=== PATIENT | female | born 1955 | race Caucasian/White ===

== ENCOUNTER 2016-10-30 03:47 | Inpatient (IN) | payer OTHER ==
[2016-10-30] VITALS (8 sets, daily range): BP systolic 109–156; BP diastolic 63–103; PULSE 70–91; RESP 12–18; O2SAT 94–99
[~2016-10-30] VITALS: Ht 160 cm; Wt 93.2 kg
--- NOTE | 2016-10-30 04:01 | ED.REPORT ---
HPI-Abd Pain F 40 and Over Date of Service Oct 30, 2016 ED Provider: Kali Harris MD A 61 year old female with a family history of gallstones presents to the ED complaining of RUQ abdominal pain. The pain is described as "sharp" pain that radiates into her back and occasionally shoots into her chest. The pt ate a dinner of fish at 17:00 that contained a high oil content, and the pain began after this. The pain has not improved since and the pt has been unable to sleep. Nursing Notes Stated Complaint: RUQ PAIN Chief Complaint: Female Abdominal Pain Nursing Notes Reviewed: Yes Allergies: Coded Allergies: Penicillins (Verified Allergy, Intermediate, rash, 10/30/16) Sulfa (Sulfonamide Antibiotics) (Verified Allergy, Intermediate, hives, ) General Time Seen by MD: 04:00 Chief Complaint Abdominal pain Hx Obtained From: Patient Arrived By: Walk-in Sudden in Onset?: No Onset Occurred: 9 - 12 hours ago Symptom Duration: Since onset Recent Healthcare: No recent hospitalization, Recent doctor visit Similar Sx Previous: No Past Medical History Past Medical History none reported Past Surgical History none reported Family History gallstones Smoking History Unknown if Ever Smoker Ambulatory Status Independent Review of Systems Respiratory: Denies: Non-productive cough, Shortness of breath GI: Reports: Abdominal pain Musculoskeletal: Reports: Back pain, Denies: Neck pain Complete sys rev & neg: except as marked. Physical Exam Vital Signs Vital Signs (First) Date Time Temp Pulse Resp B/P Pulse Ox O2 Delivery O2 Flow Rate FiO2 10/30/16 03:49 37.2 74 18 156/103 98 Room Air Initial VS: Reviewed, Vital signs abnormal General/Constitutional: Awake, Alert Respiratory / Chest: Atraumatic, Breath sounds NL, Breath sounds = bilat, No respiratory distress Cardiovascular: Heart rate NL, Regular rhythm, Heart sounds NL Abdomen: Atraumatic, Soft RUQ tenderness Back: Atraumatic, Full range of motion right CVAT Head / Eyes: Atraumatic, Normocephalic, PERRL, EOMI ENT: Atraumatic, Airway patent, Mucous membranes moist Skin: Atraumatic, Color NL, No rash, Warm, Dry Neurologic: Oriented X3, Speech NL, No motor deficits, No sensory deficits Neck: Atraumatic, Supple, Full range of motion Upper Extremity / MS: Atraumatic, Full range of motion Lower Extremity / Pelvis / MS: Atraumatic, Full range of motion Psychiatric: Affect NL, Mood NL Interpretation & Diagnostics Lab Results Interpretation Result Diagram: 10/30/16 0505 Test 10/30/16 04:20 10/30/16 05:05 Urine Color Yellow (YELLOW) Urine Appearance Clear (CLEAR,HAZY) Urine pH 7.5 (5.0-8.0) Urine Specific [place] 1.020 (1.003-1.035) Urine Protein Tracemg/dL (NEG,TRACE) Urine Glucose (UA) Negativemg/dL (NEGATIVE) Urine Ketones Negativemg/dL (NEGATIVE) Urine Occult Blood Trace (NEGATIVE) Urine Nitrite Negative (NEGATIVE) Urine Bilirubin Negative (NEGATIVE) Urine Urobilinogen Normalmg/dL (NORMAL) Urine Leukocyte Esterase Negative (NEGATIVE) Urine RBC 0-2/hpf (0-2) Urine WBC 0-5/hpf (0-5) Urine Epithelial Cells Occasional/hpf (NONE-MOD) Urine Crystals None seen (NONE SEEN) Urine Bacteria Few/hpf (NONE-FEW) Urine Hyaline Casts None/lpf (NONE) Urine Granular Casts None seen (NONE SEEN) Urine Waxy Casts None seen (NONE SEEN) Urine Red Blood Cell Casts None seen (NONE SEEN) Urine White Blood Cell Casts None seen (NONE SEEN) Urine Mucus None seen (None Seen) Urine Trichomonas None seen (NONE SEEN) Urine Yeast None (NONE SEEN) Urinalysis Comment Amorphous sediment Urine Culture Reflexed Not indicated White Blood Count 15.4th/mm3 (3.8-10.1) Red Blood Count 4.90mil/mm3 (3.90-5.20) Hemoglobin 13.9g/dL (12.0-15.6) Hematocrit 41.6% (35.0-46.0) Mean Corpuscular Volume 84.9fL (81-100) Mean Corpuscular Hemoglobin 28.4pg (27.0-35.0) Mean Corpuscular Hemoglobin Concent 33.4% (32.0-37.0) Red Cell Distribution Width 13.3% (12.3-15.4) Platelet Count 315bil/L (150-400) Neutrophils (%) (Auto) 80.7% (40-74) Lymphocytes (%) (Auto) 13.5% (14-46) Monocytes (%) (Auto) 4.7% (4-12) Eosinophils (%) (Auto) 0.5% (0-5) Basophils (%) (Auto) 0.3% (0-3) Lab Results Interpretation: Elevated white blood count Re-Eval/Medical Decision Med Decision/Clinical Course 61-year-old female who presents with right upper quadrant abdominal pain. Her mom has gallbladder disease. She is not personally known to have gallstones. Initial labs were ordered, her white blood count is elevated. Chemistries are still pending. She will likely need a gallbladder ultrasound when they arrive here at 7. Her care is being turned over change of shift to Dr. Winkler Source of Hx: Old records Counseled Regarding: Diagnosis, Lab results Discharge & Departure Shift Change Sign-Out Patient Care Transferred: Yes Discussed Complaint(s): Yes Laboratory Evaluation: Ordered, not yet done Imaging Studies: Ordered, not yet done Primary Impression: RUQ abdominal pain Discharge Condition All VS Reviewed: Yes Condition: Stable Referrals: OTHER,PHYSICIAN (PCP) (Family) Care Transferred to: Dr. Winkler Care Transferred at: 06:00 Scribe Attestation Portions of this note were transcribed by Nader Cee. I, Dr. Harris personally performed the history, physical exam and medical decision-making; I reviewed and confirmed the accuracy of the information in the transcribed note. Signed by: Wale Tejeda, 10/30/2016 and 0532. Kali Harris MD Oct 30, 2016 04:01 NADER CEE Oct 30, 2016 04:18
[2016-10-30] MEDS ORDERED: 0.9% Sodium Chloride 1,000 ML IV ONE (04:07)
[2016-10-30] MEDS ORDERED: Ondansetron 2 mg/mL 2 mL Inj IVPUSH PRN ×3 (04:10→11:40)
[2016-10-30] MEDS ORDERED: HYDROmorphone 0.5 mg/0.5 mL iSecure Syringe IVPUSH PRN (04:10)
[2016-10-30 04:47] LABS: APPEARANCE,URINE CLEAR (CLEAR,HAZY); COLOR,URINE YELLOW (YELLOW); OCCULT BLOOD,URINE TRACE (NEGATIVE); PH,URINE 7.5 (5.0-8.0); UROBILINOGEN,URINE NORMAL (NORMAL)
[2016-10-30 05:16] LABS: BASOPHILS % (AUTO) 0.3 % (0-3); EOSINOPHILS % (AUTO) 0.5 % (0-5); MONOCYTES % (AUTO) 4.7 % (4-12); Mean Corpuscular Hemoglobin 28.4 pg (27.0-35.0); Mean Corpuscular Volume 84.9 fL (81-100); NEUTROPHILS % (AUTO) 80.7 % (40-74); Platelet Count 315 bil/L (150-400)
[2016-10-30 05:38] LABS: Magnesium 1.8 mg/dL (1.6-2.6)
--- NOTE | 2016-10-30 11:03 | DRSVH ---
PROCEDURE: CT ABDOMEN AND PELVIS WITH CONTRAST ([id number]) INDICATIONS: abd pain diffuse TECHNIQUE: After the administration of oral and intravenous contrast, 5 mm thick sections acquired from the diap hragms to the symphysis. 5 mm thick coronal and sagittal reformats were performed. For radiation do se reduction, the following was used: automated exposure control, adjustment of mA and/or kV accordi ng to patient size. COMPARISON: None. FINDINGS: Image quality: Excellent. ABDOMEN: Lung bases: Lung bases are clear. Heart size is normal. Solid organs: Mild hepatic steatosis otherwise liver and spleen are normal in size and enhancement. Gallbladder is mildly prominent without wall thickening. Biliary system is non-dilated. Pancreas en hances normally. No adrenal nodules. Rotation of the right kidney incidentally noted. There are num erous mid abdominal bilateral phleboliths. There is mild right pelviectasis, possibly related to a 1- 2 mm proximal right ureteral calculus for example image 47, however this is technically indeterminate , and intraureteral location of this calcification cannot be entirely confirmed. No periureteral stra nding. Peritoneum and bowel: Small amount of oral contrast seen within the left lower quadrant small bowel loop. Stomach, small bowel, and colon loops are normal in caliber and wall thickness. No free fluid or air. There is a duodenal diverticulum with debris and gas image 37 series 2. Appendix normal. No evidence of acute diverticulitis. The rectum is decompressed and grossly unremarkable. Nodes and vessels: No retroperitoneal or mesenteric adenopathy. Aorta and inferior vena cava are no rmal in caliber. Miscellaneous: No ventral hernias. PELVIS: Genitourinary: Bladder wall thickness is normal. Miscellaneous: No inguinal hernias or adenopathy. Bones: No suspicious bony lesions. No vertebral body compression fractures. IMPRESSION: Multiple small right periureteral calcifications in keeping with phleboliths, one of which may be int raluminal however technically indeterminate, and no periureteral stranding. However there is mild rig ht pelviectasis. Recommend clinical correlation and if further confirmation is necessary, CT IVP coul d be performed. Mild prominence of the gallbladder however no wall thickening or pericholecystic inflammatory changes . Please correlate clinically and with LFTs. If needed further assessment with ultrasound can be perf ormed No cholelithiasis. Findings were personally telephoned and discussed in detail with Dr. Boaz Alvarez in the emergency d epartment at 0822 hours, 10/30/16 Dictated by: Jose Prajapati M.D. on 10/30/2016 at 7:46 Approved by: Jose Prajapati M.D. on 10/30/2016 at 8:23
--- NOTE | 2016-10-30 11:06 | DRSVH ---
PROCEDURE: US ABDOMEN, LIMITED ([id number]) INDICATIONS: RUQ TECHNIQUE: Real-time focused scanning was performed of the abdomen, with image documentation. COMPARISON: [facility], US, US VENOUS LEG DPLX UNI LT, 07/31/2016, 7:11. FINDINGS: Liver: Mild homogeneously increased echogenicity throughout the liver. No masses. Gallbladder: The gallbladder is distended. The gallbladder wall measures 3 mm at the upper limits of normal. Negative sonographic Charles's sign. No pericholecystic fluid. Prominence of the extrahepatic bile ducts. Right kidney: No hydronephrosis. The right kidney measures 10.6 CM. No solid masses. IMPRESSION: 1. Findings are indeterminate for acute cholecystitis. If clinical exam is unclear recommend a HIDA s can. 2. Fatty infiltration of the liver. 3. Prominent extrahepatic bile ducts. Dictated by: Jethro Chau M.D. on 10/30/2016 at 9:24 Approved by: Jethro Chau M.D. on 10/30/2016 at 9:28
[2016-10-30] MEDS ORDERED: Alum-Mag Hydrox-Simeth 30 mL Suspension PO PRN ×2 (11:40→13:50)
[2016-10-30] MEDS ORDERED: Polyethylene Glycol (PEG) 17 Gm Powder PO PRN (13:50)
[2016-10-30] MEDS: 0.9% Sodium Chloride 1,000 ML IV SCH (14:38)
--- NOTE | 2016-10-30 16:36 | PCM.HPMED ---
Subjective Date of Service Oct 30, 2016 Primary Provider: Admitting Physician: Jose Lerner MD Primary Care Physician: Other,Physician Attending Physician: Jose Lerner MD Chief Complaint: Right upper quadrant abdominal pain History of Present Illness: 61-year-old pleasant female with the history of hyperlipidemia, obesity, family history of gallstones presenting with 1 day of right upper quadrant abdominal pain that started yesterday evening at dinner. Patient says the pain was an 8 or 9 out of 10. Initially epigastric did not seem to move more to the right upper quadrant. She has never had any episode like this before. Denies any trauma. Patient denies any history of gallstones she knows of. She said that her dinner did consists consist of high fat and oil content. She does not history of elevated cholesterol and was tried on pravastatin last year by her primary care physician however could not tolerate secondary to rhabdomyolysis. Denies light-colored stools. Denies any jaundice of skin or scleral icterus. Denies any nausea or vomiting. Denies any diarrhea. Denies any fever or chills. She was recently put on antibiotic tetracycline for a stye around her left eye lid. She completed 9 of 10 days with today being the 19th day. Review of Systems: 12 point review of symptoms negative except for that in history of present illness Allergies Coded Allergies: Penicillins (Verified Allergy, Intermediate, rash, 10/30/16) Sulfa (Sulfonamide Antibiotics) (Verified Allergy, Intermediate, hives, ) Home Medications Tetracycline- unsure of dose Denies taking any other medications for chronic medical issues PMH hyperlipidemia, obesity Stye over left eyelid Surgical History Status post Status post hysterectomy 10 years ago Had pelvic surgery 2 years ago for repair of a pelvic sling that was placed after her hysterectomy Ankle ankle surgery- tendon rupture repair Family History Mother diagnosed with gallstones and cholecystectomy Father- fatal AL in his 60s Social History Hx Alcohol Use: No Hx Substance Use: No Hx Tobacco Use: No Smoking Status: Never Smoker, Unknown if Ever Smoker Living Arrangement: Alone Exam Vital Signs Vital Sign - Last Date Time Temp Pulse Resp B/P Pulse Ox O2 Delivery O2 Flow Rate FiO2 10/30/16 14:43 37.5 82 16 147/89 97 Room Air Intake and Output 10/29/16 10/29/16 10/30/16 Cumulative From/Thru 15:00 23:00 07:00 10/30/16 03:49 - 10/30/16 04:34 Intake Total 1000 ml 1000 ml Balance 1000 ml 1000 ml Intake IV Total 1000 ml 1000 ml Exam Gen: Obese NAD, AOx3. Appears to be in moderate discomfort secondary to pain HEENT: NCAT, PERRLA, EOMI, MMM, sclera anicteric. Neck: Soft, supple, symmetrical, no thyromegaly/JVD/LAD. Resp: CTAB, no R/R/W. CV: RRR, nl S1/S2, no M/R/G, Abd: Soft, (+) BS, mild tenderness to palpation over epigastric and right upper quadrant. Charles's negative. No Rebound tenderness or guarding. Ext: +PP, -edema Skin: warm/dry/intact Neuro/Psych: No focal deficits, CN II-XII grossly intact. AAOx3, cooperative , appropriate mood/affect. Lab and Diagnostics Result Diagram: 10/30/16 0505 10/30/16 0505 X-Rays, CTs and MRIs CT ABDOMEN AND PELVIS WITH CONTRAST- Date of Service: 10/30/16 0658 -Multiple small right periureteral calcifications in keeping with phleboliths, one of which may be intraluminal however technically indeterminate, and no periureteral stranding. However there is mild right pelviectasis. Recommend clinical correlation and if further confirmation is necessary, CT IVP could be performed. -Mild prominence of the gallbladder however no wall thickening or pericholecystic inflammatory changes. Please correlate clinically and with LFTs. If needed further assessment with ultrasound can be performed -No cholelithiasis. US ABDOMEN, LIMITED Date of Service: 10/30/16 0610 INDICATIONS: RUQ COMPARISON: [facility], US, US VENOUS LEG DPLX UNI LT, 07/31/2016, 7 :11. FINDINGS: Liver: Mild homogeneously increased echogenicity throughout the liver. No masses. Gallbladder: The gallbladder is distended. The gallbladder wall measures 3 mm at the upper limits of normal. Negative sonographic Charles's sign. No pericholecystic fluid. Prominence of the extrahepatic bile ducts. Right kidney: No hydronephrosis. The right kidney measures 10.6 CM. No solid masses. IMPRESSION: 1. Findings are indeterminate for acute cholecystitis. If clinical exam is unclear recommend a HIDA scan. 2. Fatty infiltration of the liver. 3. Prominent extrahepatic bile ducts. Assessment & Plan 61-year-old pleasant female with the history of hyperlipidemia, obesity, family history of gallstones presenting with 1 day of right upper quadrant abdominal pain that started yesterday evening at dinner with ultrasound finding of common bile duct dilation with mild prominence of the gallbladder however indeterminate for acute cholecystitis. #RUQ Pain-present on admission, active. may be secondary to acute cholecystitis. Consider acalculous cholecystitis. Patient's risk factor of obesity and hyperlipidemia. Also consider nephrolithiasis. Imaging done is not conclusive for cholecystitis. Patient does have a elevated white count. Has been afebrile. Otherwise hemodynamically stable. -Dilated Common Bile Ducts- CT showed some mild prominence of the gallbladder without wall thickening or pericholecystic inflammatory changes. No cholelithiasis was evident. Abdominal ultrasound was done which showed findings indeterminate for acute cholecystitis. Did show prominent extrahepatic bile ducts. - GI, Dr. Devon Pollack called by ED. He will see pt, rec MRCP and pain managment for now. If MRCP is abnormal consider ERCP. We will follow-up GI recommendations, appreciate input. - Will keep nothing by mouth for now - Continue IV fluids normal saline at 100 per hour - Check lipid panel in a.m. #Leukocytosis-present on admission, active- may be secondary to cholecystitis or reactive. WBC on admission is 15 . Patient has been afebrile. Hemodynamically stable. Urinalysis is negative for infection. If clinical evidence of infection or fever will culture and start antibiotics. - Patient is allergic to penicillin and sulfa drugs. - Repeat CBC in a.m. #Nephrolithiasis - present on admission, active-CT of the abdomen and pelvis with contrast- small right periureteral calcification. Less likely to be causing the right upper quadrant pain given her nonobstructing without any hydronephrosis. Patient has no history of renal stones. Chronic issues- #Obesity- likely contributing to possible cholelithiasis. #Hyperlipidemia-patient cannot tolerate statins secondary to rhabdomyolysis. Check lipid panel in a.m. Dispo- patient is admitted under observation and expected to stay less than 2 midnights unless subsequent imaging requires more intensive management. Pain Evaluation: Adequate Pain Control GI Prophylaxis: H2 michelle VTE Prophylaxis: Sub-Q Enoxaparin VTE Mechanical Devices: Intermittant Pneumatic CD Resuscitation Status: CPR: Attempt Resuscitation Time spent 60 minute Jose Lerner MD Oct 30, 2016 16:36
--- NOTE | 2016-10-30 17:57 | NUR ---
New Admission Patient to receive MRI at 1800 today. Complains of pain in L flank area. Wants to limit morphine d/t fuzzy and itchy feelings. Prefers toradol for pain.
[2016-10-30] MEDS: Ketorolac 15 mg/mL Inj IVPUSH PRN (20:14)
[2016-10-30] MEDS: Famotidine Inj 20 MG in IV Premix 1 EACH IV SCH (20:14)
[2016-10-30] MEDS: metroNIDAZOLE Inj 500 MG in IV Premix 1 EACH IV SCH (21:01)
[2016-10-30 21:26] LABS: Bilirubin, Direct 0.2 mg/dL (0.0-0.3)
--- NOTE | 2016-10-30 21:47 | NUR ---
MRI pt back from MRI at 2009. Called lab for blood culture to be done.
[2016-10-30] MEDS: levoFLOXacin Inj 750 MG in IV Premix 1 EACH IV SCH (21:54)
[2016-10-31] VITALS (12 sets, daily range): BP systolic 99–127; BP diastolic 64–89; PULSE 72–89; RESP 12–23; O2SAT 93–100
[2016-10-31] MEDS: 0.9% Sodium Chloride 1,000 ML IV SCH ×3 (04:59→22:11)
[2016-10-31] MEDS: Ketorolac 15 mg/mL Inj IVPUSH PRN ×3 (04:59→17:13)
--- NOTE | 2016-10-31 05:34 | NUR ---
Pain/Activity pt c/o 8/10 back ( more to the right flank) and abdominal pain. Administered IVP Toradol. pt reported pain relief on rate of 2/10 which is tolerable. pt denies N/V. VSS. pt ambulated in the hallway x2 independently with supervision. will continue to monitor.
[2016-10-31 07:47] LABS: INR 1.22 ratio
[2016-10-31] MEDS: Famotidine Inj 20 MG in IV Premix 1 EACH IV SCH ×2 (08:12→22:11)
[2016-10-31] MEDS: metroNIDAZOLE Inj 500 MG in IV Premix 1 EACH IV SCH ×3 (08:13→21:58)
--- NOTE | 2016-10-31 08:13 | DRSVH ---
PROCEDURE: MR ABDOMEN MRCP INDICATIONS: Common Bile Duct Dilation TECHNIQUE: Coronal HASTE through the abdomen, axial 2-D FLASH in- and [id number], and breath-hold T2 FSE with fat saturation through the biliary system and pancreas. Oblique coronal and axial thin-slice HASTE, radial thick-slab HASTE centered on the extrahepatic bile ducts. Intravenous secretin: Not requested. COMPARISON: [facility], US, ABDOMEN LTD, 10/30/2016, 8:09. [facility], CT, C T ABD PELVIS W CON, 10/30/2016, 7:14. FINDINGS: Image quality: Excellent. Pancreas and biliary system: Intra-hepatic biliary ducts are non dilated. The extrahepatic biliary duct is dilated measuring up to 10 mm, tapering to normal caliber distally near ampulla. There may be mild common bile duct or thickening. There are probable tiny gallstones or sludge. Pancreas is david l in morphology, without adjacent soft tissue edema. Pancreatic duct is normal in caliber, without d evelopmental anomalies. Gallbladder is slightly distended. No gallstones. Other solid organs: Liver and spleen are normal in size. No adrenal nodules. Both kidneys are norm al in size. Mild right renal pelviectasis. Nodes and vessels: No retroperitoneal or mesenteric adenopathy by size criteria. Aorta and inferior vena cava are normal in size. Bowel and peritoneum: Unenhanced bowel loops are normal in caliber. No free fluid. Lung bases: No basal pleural effusions. Heart size is normal. Bones and soft tissues: No ventral hernias. Bone marrow is of normal overall signal. IMPRESSION: 1. Dilated common bile duct measuring up to 10 mm. There is no intrahepatic biliary dilation. The com mon bile duct wall may be mildly thickened, raising the question of cholangitis. There may be small g allstones or sludge within the common bile duct. Please correlate with serum bilirubin. If clinically indicated, ERCP may be considered. 2. Slightly distended gallbladder. No gallstones within the gallbladder. 3. Mild right renal pelviectasis. Dictated by: Darin Kearns M.D. on 10/31/2016 at 7:54 Approved by: Darin Kearns M.D. on 10/31/2016 at 8:10
[2016-10-31] MEDS: Ondansetron 2 mg/mL 2 mL Inj IVPUSH PRN (10:05)
[2016-10-31 10:31] LABS: Mean Corpuscular Volume 86.5 fL (81-100)
[2016-10-31 10:32] LABS: BASOPHILS % (AUTO) 0.1 % (0-3); EOSINOPHILS % (AUTO) 0.2 % (0-5); MONOCYTES % (AUTO) 7.6 % (4-12); NEUTROPHILS % (AUTO) 82.3 % (40-74); Platelet Count 278 bil/L (150-400)
[2016-10-31] MEDS ORDERED: Propofol 10,000 mCg/mL 20 mL Inj ONE (12:48)
[2016-10-31] MEDS ORDERED: Glycopyrrolate 0.2 MG/ML 1mL Inj ONE (12:48)
[2016-10-31] MEDS ORDERED: Rocuronium 10 mg/mL 5 mL Inj ONE (12:48)
[2016-10-31] MEDS ORDERED: Dexamethasone 4 mg/mL Inj ONE (12:48)
[2016-10-31] MEDS ORDERED: MetoCLOpramide 5 mg/mL 2 mL Inj ONE (12:48)
[2016-10-31] MEDS ORDERED: fentaNYL-PF 50 mCg/mL 2 mL Inj ONE (12:48)
[2016-10-31] MEDS ORDERED: Neostigmine 1 mg/mL 10 mL Inj ONE (12:48)
--- NOTE | 2016-10-31 16:39 | PCM.PNMED ---
Subjective Date of Service Oct 31, 2016 Subjective Patient was febrile yesterday evening and started on antibiotics. Overnight she goes her abdominal pain has improved but still present in the right upper quadrant. No nausea. Exam Vital Signs Vital Sign - Last Date Time Temp Pulse Resp B/P Pulse Ox O2 Delivery O2 Flow Rate FiO2 10/31/16 14:30 38.1 81 16 108/71 95 Room Air Intake and Output 10/30/16 10/30/16 10/31/16 Cumulative From/Thru 15:00 23:00 07:00 10/30/16 03:49 - 10/30/16 17:59 Intake Total 291 ml 1291 ml Output Total 200 ml 200 ml Balance 91 ml 1091 ml Intake IV Total 291 ml 1291 ml Output Urine Total 200 ml 200 ml Exam Gen: Obese NAD, AOx3. HEENT: NCAT, PERRLA, EOMI, MMM, sclera anicteric. Neck: Soft, supple, symmetrical, no thyromegaly/JVD/LAD. Resp: CTAB, no R/R/W. CV: RRR, nl S1/S2, no M/R/G, Abd: Soft, (+) BS, mild tenderness to palpation over epigastric and right upper quadrant- improved. No Rebound tenderness or guarding. Ext: +PP, -edema Skin: warm/dry/intact Neuro/Psych: No focal deficits, CN II-XII grossly intact. AAOx3, cooperative , appropriate mood/affect. IVs and Medications Medications Reviewed: Medications were reviewed in detail Lab and Diagnostics Result Diagram: 10/31/1662910/31/16629 X-Rays, CTs and MRIs CT ABDOMEN AND PELVIS WITH CONTRAST- Date of Service: 10/30/16 0658 -Multiple small right periureteral calcifications in keeping with phleboliths, one of which may be intraluminal however technically indeterminate, and no periureteral stranding. However there is mild right pelviectasis. Recommend clinical correlation and if further confirmation is necessary, CT IVP could be performed. -Mild prominence of the gallbladder however no wall thickening or pericholecystic inflammatory changes. Please correlate clinically and with LFTs. If needed further assessment with ultrasound can be performed -No cholelithiasis. US ABDOMEN, LIMITED Date of Service: 10/30/16 0610 INDICATIONS: RUQ COMPARISON: [facility], US, US VENOUS LEG DPLX UNI LT, 07/31/2016, 7 :11. FINDINGS: Liver: Mild homogeneously increased echogenicity throughout the liver. No masses. Gallbladder: The gallbladder is distended. The gallbladder wall measures 3 mm at the upper limits of normal. Negative sonographic Charles's sign. No pericholecystic fluid. Prominence of the extrahepatic bile ducts. Right kidney: No hydronephrosis. The right kidney measures 10.6 CM. No solid masses. IMPRESSION: 1. Findings are indeterminate for acute cholecystitis. If clinical exam is unclear recommend a HIDA scan. 2. Fatty infiltration of the liver. 3. Prominent extrahepatic bile ducts. Assessment & Plan 61-year-old pleasant female with the history of hyperlipidemia, obesity, family history of gallstones presenting with 1 day of right upper quadrant abdominal pain that started yesterday evening at dinner with ultrasound finding of common bile duct dilation with mild prominence of the gallbladder however indeterminate for acute cholecystitis. #RUQ Pain-present on admission, active. may be secondary to cholangitis. Patient's risk factor of obesity and hyperlipidemia. Imaging done is not conclusive for cholecystitis. Patient does have a elevated white count. Became febrile evening of admission was started on levofloxacin and Flagyl. Otherwise hemodynamically stable. -Dilated Common Bile Ducts- CT showed some mild prominence of the gallbladder without wall thickening or pericholecystic inflammatory changes. No cholelithiasis was evident. Abdominal ultrasound was done which showed findings indeterminate for acute cholecystitis. Did show prominent extrahepatic bile ducts. - GI, Dr. Devon Pollack called by ED. He will see pt, rec MRCP and pain managment for now. - MRCP-showed dilated common bile duct up to 10 mm. Question of cholangitis. May be small stones or sludge within the common bile duct. - Given patient's LFTs are normal, will get HIDA scan. - Surgery consulted for possible cholecystectomy-appreciate recommendations. -Patient will be kept nothing by mouth except for meds - Continue with IV fluids. #Sepsis, present on admission, active- SIRS+ WBC >15.4->17.8 and Fever >38. Source is likely gallbladder. Hemodynamically stable. Urinalysis is negative for infection. Started on antibiotics, see plan above. - Patient is allergic to penicillin and sulfa drugs, therefore started on levofloxacin and Flagyl day 2.. - Repeat CBC in a.m. #Nephrolithiasis - present on admission, active-CT of the abdomen and pelvis with contrast- small right periureteral calcification. Less likely to be causing the right upper quadrant pain given her nonobstructing without any hydronephrosis. Patient has no history of renal stones. Chronic issues- #Obesity- likely contributing to possible cholelithiasis. #Hyperlipidemia-patient cannot tolerate statins secondary to rhabdomyolysis. Check lipid panel in a.m. Dispo-patient upgraded to inpatient admission after diagnosis of sepsis on the evening of admission. Likely stay greater than 2 nights GI Prophylaxis: H2 michelle VTE Prophylaxis: Sub-Q Enoxaparin VTE Mechanical Devices: Intermittant Pneumatic CD Resuscitation Status: CPR: Attempt Resuscitation Jose Lerner MD Oct 31, 2016 16:39
--- NOTE | 2016-10-31 17:25 | DRSVH ---
PROCEDURE: NM HIDA SCAN WITH CCK PHARMACEUTICAL: 5.7 mCi Tc-99m mebrofenin IV; 1.8 mcg CCK IV. INDICATIONS: POSSIBLE CHOLECYSTITIS WITH CHOLEANGITIS TECHNIQUE: Following intravenous administration of Tc-99m mebrofenin, sequential anterior abdominal images were obtained. To evaluate the contractile response of the gallbladder in response to Cholecystokinin (CC K), sincalide (0.02 g/kg) was administered by slow intravenous infusion approximately 60 minutes aft er the administration of the radiopharmaceutical. Sequential imaging was continued for [address] the start of CCK infusion. Gallbladder ejection fraction was calculated. COMPARISON: [facility], MR, MR ABD MRCP, 10/30/2016, 18:49. [facility], US, ABDOMEN LTD, 10/30/2016, 8:09. [facility], CT, CT ABD PELVIS W CON, 10/30/2016, 7:14. FINDINGS: Biliary scan: There is normal tracer uptake and excretion by the liver. There is normal visualizati on of the intrahepatic ducts, common bile duct, and gallbladder. There is normal tracer transit into the duodenum. CCK stimulation: There is poor contractile response of the gallbladder to CCK infusion. The calcula latosha gallbladder ejection fraction is 13.7%; normal values are above 35%. It has been shown that any patient abdominal pain after CCK administration is related to the rate of CCK injection, rather than to any underlying gallbladder disease (Clinical Nuclear Medicine 2012; 37: 63-70. Journal of Nuclear Medicine 2014; 55: 1-9). IMPRESSION: 1. Normal filling of gallbladder. No evidence for acute cholecystitis. 2. Poor contractile response of gallbladder to CCK infusion, consistent with biliary dyskinesia. Dictated by: Darin Kerans M.D. on 10/31/2016 at 17:22 Approved by: Darin Kearns M.D. on 10/31/2016 at 17:23
--- NOTE | 2016-10-31 18:05 | NUR ---
Pain control Patient's pain control helped with IV toradol. Got MSCP today and GI team spoke with patient regarding results. She remains NPO.
--- NOTE | 2016-10-31 19:10 | NUR ---
pt off unit for surgery.
[2016-10-31] MEDS ORDERED: Lactated Ringer's 1,000 ML IV ONE (19:48)
[2016-10-31] MEDS: levoFLOXacin Inj 750 MG in IV Premix 1 EACH IV SCH ×2 (20:05→21:58)
[2016-10-31] MEDS ORDERED: Lactated Ringer's 500 ML IV PRN (20:16)
[2016-10-31] MEDS ORDERED: Lactated Ringer's 1,000 ML IV SCH (20:16)
[2016-10-31] MEDS ORDERED: Bupivacaine-MPF 0.25% 30 mL Inj INFILTRATE ONE (20:17)
[2016-10-31] MEDS ORDERED: MetoCLOpramide 5 mg/mL 2 mL Inj IVPUSH PRN (20:20)
[2016-10-31] MEDS ORDERED: EPHEDrine Sulfate 50 mg/mL Inj IVPUSH PRN (20:20)
[2016-10-31] MEDS ORDERED: Dexamethasone 4 mg/mL Inj IVPUSH PRN (20:20)
[2016-10-31] MEDS ORDERED: Acetaminophen IV 1,000 MG in IV Premix 1 EACH IV PRN (20:20)
[2016-10-31] MEDS ORDERED: fentaNYL-PF 50 mCg/mL 2 mL Inj IVPUSH PRN (20:20)
[2016-10-31] MEDS ORDERED: HYDROmorphone 1 mg/mL Inj IVPUSH PRN (20:20)
[2016-10-31] MEDS ORDERED: Ondansetron 2 mg/mL 2 mL Inj IVPUSH PRN (20:20)
[2016-10-31] MEDS ORDERED: Phenylephrine 10,000 mCg/mL Inj IVPUSH PRN (20:20)
--- NOTE | 2016-10-31 20:50 | CONS ---
[address] [address] CONSULTATION REPORT PATIENT: CARMENCITA ENCARNACION : 1955 MR#: [id number] ADMIT: 10/30/2016 JOB ID: [id number] DATE OF SERVICE: 10/31/2016 CHIEF COMPLAINT: A 61-year-old lady with abdominal pain seen in consultation at the request of Jose eLrner MD. HISTORY OF PRESENT ILLNESS: The patient is a 61-year-old lady who presented yesterday to the emergency department with 24 hours of right-sided upper abdominal pain which started after dinner. It was initially in the upper abdomen but then she thought it was more to the right upper side, going to the back. She has never had previous episodes like this. By the time I saw her today, she was having pain more diffusely on the right side of the abdomen, even in the lower abdomen. She was recently on tetracycline for a stye on her left eyelid and she completed nine days of that. HOME MEDICATIONS: Tetracycline. ALLERGIES: 1. PENICILLIN. 2. SULFA. OTHER MEDICAL PROBLEMS: 1. Hyperlipidemia. 2. Obesity. PRIOR OPERATIONS: 1. section. 2. Vaginal hysterectomy. 3. Oophorectomy. 4. Robotic bladder sling. 5. Ankle surgery. FAMILY HISTORY: Mother had gallstones and cholecystectomy. Father had myocardial infarction. Mother also had peritoneal carcinomatosis likely from ovarian cancer in her 80s. SOCIAL HISTORY: She does not smoke. She worked as a medical reception. She lives alone in [place]. Her daughter now relocated to [place]. INVESTIGATIONS: WBC 17.8, up from 15.4, hemoglobin 12.7, platelet count 278, glucose 118, creatinine 0.59 and liver function studies normal. Albumin 3.6. INR 1.2. Abdominal ultrasound October 30, 2016: Distended gallbladder with gallbladder wall measuring 3 mm, negative for sonographic Charles sign. No pericholecystic fluid. Prominent extrahepatic bile ducts. CT abdomen and pelvis with contrast on October 30, 2016, showed mild prominence of the gallbladder with no wall thickening or pericholecystic inflammatory changes. MRCP on October 30, 2016, showed dilated common bile duct measuring 10 mm. The common bile duct was thought to be possibly mildly thickened raising the question of cholangitis. No gallstones were seen within the gallbladder. HIDA scan performed today showed normal filling of the gallbladder with no evidence of acute cholecystitis. The calculated gallbladder ejection fraction was 13.7% while she was on opioids in the hospital. PHYSICAL EXAMINATION: A 61-year-old lady in mild distress. BMI 36.4, temperature 38.4, pulse 81, respiratory rate 18, blood pressure 122/82, saturating 97% on room air. Eyes: Normal pupils, conjunctivae. Ears, nose, and throat: Normal external appearance. Neck: No adenopathy. Respiratory: Normal effort, clear to auscultation. Cardiovascular: Regular rate and rhythm. Chest/breast exam deferred. Gastrointestinal: Tender to palpation in the right lower quadrant, right upper quadrant and epigastrium more than the rest of the abdomen. Neurologic: No gross deficits. Psych: Alert, appropriate. Skin normal. ASSESSMENT AND PLAN: Abdominal pain of unclear etiology. Discussed continued antibiotic treatment with pain medication versus diagnostic laparoscopy. After discussing the risks, benefits, and alternatives, she wished to proceed with a diagnostic laparoscopy with possible cholecystectomy or appendectomy if I see any acute abnormality. After discussing the risks, benefits, and alternatives, she wished to proceed and we will go ahead later today.
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
--- NOTE | 2016-10-31 21:12 | PCM.SURGPO ---
Immediate Operative Note Date of Surgery: Oct 31, 2016 Pre Operative Diagnosis Abdominal pain Post Operative Diagnosis Abdominal pain of unclear etiology Procedure Diagnostic Laparoscopy Surgeon and Flight Service Agent Surgeon: Federico Serrano MD Assistants: Georges Frazier, PAC Findings Normal gallbladder, appendix, bowel. Complications There were no periprocedural complications identified. Surgical Specimen Removed: No Specimen sent to Pathology: No Anesthetic Administered: GA Grafts, Implants: None Output, Estimated Blood Loss: 0 Blood Admin during surgery: No Attending Statement Brim Plater listed in the operation was medically necessary for the successful completion of the operation Federico Serrano MD Oct 31, 2016 21:11
--- NOTE | 2016-10-31 21:29 | PCM.HPANE ---
Patient Data Surgeon Admitting Provider:Jose Lerner MD Attending Provider:Jose Lerner MD Primary Care Physician:Other,Physician Other Provider: Reason for Visit Ruq Pain,Kidney Stone,Dilated Common Bile Duct Ht/WT & BMI Height (Feet): 5 Height (Inches): 3.00 Weight (Kilograms): 93.200 Body Mass Index 36.41 Allergies Coded Allergies: Penicillins (Verified Allergy, Intermediate, rash, 10/30/16) Sulfa (Sulfonamide Antibiotics) (Verified Allergy, Intermediate, hives, ) Past Anesthesia History Anesthesia History: Denies:: Anesthesia Reactions MRSA MRSA: No Medications No Active Prescriptions or Reported Meds History History of ENT Problems?: No HEENT History: Denies:: Abnormal Airway Cataracts Difficult Intubation Dysphagia Glaucoma Hearing Problem Sinus Problem TMJ Denture Type: None Teeth Condition: Within Normal Limits Hx of Heart Problems?: No Cardiovascular History: Denies:: AICD Abdominal Aortic Aneurism Atrial Fibrillation Cardiac Surgery Chest Pain Congestive Heart Failure Coronary Artery Disease Edema Heart Murmur Hypertension Irregular Heartbeat Pacemaker Peripheral Vascular Rheumatic Fever Thrombophlebitis Valvular Heart Disease Hx of Respiratory Problem?: No Respiratory History: Denies:: Asthma COPD Chest Surgery Cough Dyspnea Emphysema Hemoptysis Oxygen Administration Pneumonia Pulmonary Embolism Tuberculosis Use of C-PAP Machine Use of Inhalers / NEBS Other Resp Pertinent History: occasional environmental allergies Hx Neurologic Problems?: Yes Neurological History: Positive for:: Headaches Hx of GI Problems?: Yes Hx of Problems?: Yes Genitourinary History: Positive for:: Urinary Tract Infection Female Hx: Denies:: Currently Endometriosis Pelvic Inflammatory Problems with Breasts? Hx Musculoskeletal Problems?: Yes Hx of Psycho/Social Problems?: No Hx Surgeries?: Yes (Hysterectomy, , Bladder alignmt surgery) Hx Any Other Health Problems?: Yes Other History: Positive for:: Hospitalization History Blood Transfusions: Positive for:: Accept Blood Products? Denies:: Blood Transfusions Hx Alcohol Use: NoHx Substance Use: No Smoking Status: Never Smoker Unknown if Ever Smoker Stop/Bang Treated for Sleep Apnea?: No Do You Have a CPAP Machine?: No S-Snoring: Do You Snore Loudly: Yes T-Tired: feel tired, fatigued: No O-Obsered: Observed not breath: No P-Blood Pressure: treated: No B- Body Mass Index > 35 kg/m2: Yes A- Age over 50: Yes N- Neck Large Circumference: No G- Gender Male: No DEL Total Score: 3 Risk Assessment Category Category 1A: Patient has history of documented sleep apnea, and HAS NOT received any narcotic, sedative or anesthesia administration during this stay. Category 1B: Patient has history of documented sleep apnea, and HAS received any narcotic , sedative or anesthesia administration during this stay Category 2: Patient has SUSPECTED Obstructive Sleep Apnea, and HAS received any narcotic , sedative or anesthesia administration during this stay. Category 3: Patient has SUSPECTED Obstructive Sleep Apnea and HAS NOT received narcotic, sedative or anesthesia administration during this stay. Category 4: Outpatient in Procedural Areas with known sleep apnea or who screen positive for High Risk via the STOP/BANG questionnaire. Exam Exam Vital Signs Vital Signs Date Time Temp Pulse Resp B/P Pulse Ox O2 Delivery O2 Flow Rate FiO2 10/31/16 18:28 37.7 88 12 111/74 95 Room Air 10/31/16 14:30 38.1 81 16 108/71 95 Room Air 10/31/16 11:26 38.4 81 18 122/82 97 Room Air General Appearance: Alert, Oriented X3, Cooperative, No Acute Distress HEENT/AIRWAY: MP 2 Lungs: Clear to Auscultation Heart: Exam Unremarkable Meds/Labs/Diagnostics Admission Meds Current Medications Enoxaparin Sodium 40 mg 40 mg DAILY SUBQ Last administered on 10/31/16 08:12; Start 10/31/16 at 08:30 Famotidine/Sodium Chloride 20 mg/ Premix 50 ml @ 100 mls/hr Q12 IV Last administered on 10/31/16 08:12; Start 10/30/16 at 20:30 Metronidazole/ Sodium Chloride/ Premix (Flagyl Inj/IV Premix) 100 ml @ 200 mls/ hr Q12 IV Last administered on 10/31/16 08:13; Start 10/30/16 at 20:30 Labs Test 10/30/16 04:20 10/30/16 05:05 10/30/16 14:35 10/30/16 20:50 Urine Color Yellow (YELLOW) Urine Appearance Clear (CLEAR,HAZY) Urine pH 7.5 (5.0-8.0) Urine Specific [place] 1.020 (1.003-1.035) Urine Protein Tracemg/dL (NEG,TRACE) Urine Glucose (UA) Negativemg/dL (NEGATIVE) Urine Ketones Negativemg/dL (NEGATIVE) Urine Occult Blood Trace (NEGATIVE) Urine Nitrite Negative (NEGATIVE) Urine Bilirubin Negative (NEGATIVE) Urine Urobilinogen Normalmg/dL (NORMAL) Urine Leukocyte Esterase Negative (NEGATIVE) Urine RBC 0-2/hpf (0-2) Urine WBC 0-5/hpf (0-5) Urine Epithelial Cells Occasional/hpf (NONE-MOD) Urine Crystals None seen (NONE SEEN) Urine Bacteria Few/hpf (NONE-FEW) Urine Hyaline Casts None/lpf (NONE) Urine Granular Casts None seen (NONE SEEN) Urine Waxy Casts None seen (NONE SEEN) Urine Red Blood Cell Casts None seen (NONE SEEN) Urine White Blood Cell Casts None seen (NONE SEEN) Urine Mucus None seen (None Seen) Urine Trichomonas None seen (NONE SEEN) Urine Yeast None (NONE SEEN) Urinalysis Comment Amorphous sediment Urine Culture Reflexed Not indicated Magnesium Level 1.8mg/dL (1.6-2.6) Troponin T < 0.010ug/L (0.0-0.011) Lactic Acid Level 0.9mmol/L (0.4-2.0) Direct Bilirubin 0.2mg/dL (0.0-0.3) Test 10/31/16 06:30 White Blood Count 17.8th/mm3 (3.8-10.1) Red Blood Count 4.38mil/mm3 (3.90-5.20) Hemoglobin 12.7g/dL (12.0-15.6) Hematocrit 37.9% (35.0-46.0) Mean Corpuscular Volume 86.5fL (81-100) Mean Corpuscular Hemoglobin 29.0pg (27.0-35.0) Mean Corpuscular Hemoglobin Concent 33.5% (32.0-37.0) Red Cell Distribution Width 13.1% (12.3-15.4) Platelet Count 278bil/L (150-400) Neutrophils (%) (Auto) 82.3% (40-74) Lymphocytes (%) (Auto) 9.6% (14-46) Monocytes (%) (Auto) 7.6% (4-12) Eosinophils (%) (Auto) 0.2% (0-5) Basophils (%) (Auto) 0.1% (0-3) Prothrombin Time 13.1sec (8.1-12.5) Prothromb Time International Ratio 1.22ratio Sodium Level 140mEq/L (134-144) Potassium Level 3.7mEq/L (3.5-5.2) Chloride Level 103mEq/L (97-108) Carbon Dioxide Level 23mmol/L (18-29) Blood Urea Nitrogen 8mg/dL (8-27) Creatinine 0.59mg/dL (0.57-1.00) Estimat Glomerular Filtration Rate 149mL/min (>59) Glucose Level 118mg/dL (60-99) Calcium Level 8.7mg/dL (8.5-10.1) Total Bilirubin 0.7mg/dL (0.0-1.2) Aspartate Amino Transf (AST/SGOT) 14U/L (0-50) Alanine Aminotransferase (ALT/SGPT) 15U/L (0-32) Alkaline Phosphatase 68U/L (25-165) Total Protein 6.0g/dL (6.4-8.4) Albumin 3.6g/dL (3.4-5.0) Triglycerides Level 52mg/dL (0-149) Cholesterol Level 179mg/dL (100-199) LDL Cholesterol, Calculated 117.600mg/dL (0-99) VLDL Cholesterol 10.400mg/dL HDL Cholesterol 51mg/dL (>39) Cholesterol/HDL Ratio 3.51 (0.0-4.4) Lipase 51U/L (13-60) Plan Impression Patient chart reviewed, patient interviewed and anesthestic plan with risks, benefits, and alternatives discussed, and informed consent obtained. ASA Physical Status: ASA2 Mod Systemic Disease Anesthetic Plan: GA Bene/Risks/Altern/Consents: Yes HP Complete Prior to Induction: Yes Eugene Washington MD Oct 31, 2016 19:01
--- NOTE | 2016-10-31 21:30 | PCM.ANEP1 ---
Post Anesthesia PACU Phase 1 Assessment Vital Signs Vital Signs Date Time Temp Pulse Resp B/P Pulse Ox O2 Delivery O2 Flow Rate FiO2 10/31/16 21:25 82 14 127/67 93 Room Air 10/31/16 21:20 80 23 125/69 100 Simple Mask 8 10/31/16 21:15 81 22 122/68 99 Simple Mask 8 10/31/16 21:10 37.7 89 16 121/89 96 Simple Mask 8 10/31/16 18:28 37.7 88 12 111/74 95 Room Air 10/31/16 14:30 38.1 81 16 108/71 95 Room Air Anesthetic Administered: GA Level of Alertness: Awake, talking SCHNEIDER's with Equal Strength: Yes Pain: No Pain Scale Score: 5 Nausea or Vomiting: No CV Function & Hydration Stable: Yes Airway Device: Oxygen Delivery: Room Air Lungs: Clear to Auscultation Dermatome Level: Full Sensation PACU Phase 2 Assessment Complications: No Patient Instructions Provided: N/A Eugene Washington MD Oct 31, 2016 21:29
--- NOTE | 2016-10-31 21:57 | OP ---
[address] [address] OPERATIVE REPORT PATIENT: CARMENCITA ENCARNACION : 1955 MR#: [id number] ADMIT: 10/30/2016 JOB ID: [id number] DATE OF SURGERY: 10/31/2016 SURGEON: Federico Serrano MD FILLING MACHINE TENDER: Georges Frazier PA-C. PREOPERATIVE DIAGNOSIS(ES): Abdominal pain of unclear etiology. POSTOPERATIVE DIAGNOSIS(ES): Abdominal pain of unclear etiology. PROCEDURE PERFORMED: Diagnostic laparoscopy. INDICATIONS: The patient is a 61-year-old lady who presented yesterday to the emergency department with 24 hours of right-sided abdominal pain which was progressively getting worse. She was having more diffuse pain on the right side of the abdomen, was having fevers. Her white blood cell count was going up today, but her investigations in terms of imaging were not very helpful which included an ultrasound, a CT scan, an MRCP and HIDA scan, which showed gallbladder filling and basically no obvious etiology for her symptoms. After discussing the risks, benefits, and alternatives, she was brought to the operating room for diagnostic laparoscopy. PROCEDURE DETAILS: She was placed in supine position and underwent smooth induction of general anesthesia. Abdomen was prepped and draped in the usual sterile fashion. Surgical time-out was undertaken using safety checklist, and all were in agreement. I began by opening an old supraumbilical incision and entered the abdomen using a combination of open Ayo technique and Optiview trocars. I obtained pneumoperitoneum and then placed two additional 5 mm ports, one in the right upper quadrant and one in the left upper quadrant. Visualized the gallbladder which appeared normal and visualized the appendix which also appeared normal. Then, I ran the small bowel back from the terminal ileum toward the jejunum and that also appeared normal. I visualized the ascending colon, transverse colon and the descending colon and the stomach which all did not reveal any obvious abnormalities. At that point, I decided to terminate the procedure after evacuating the pneumoperitoneum and closed the supraumbilical port site fascia with 0-Vicryl suture and then the skin was reapproximated with 4-0 Monocryl. Steri-Strips and sterile dressing were applied. Patient was recovered from anesthesia and was taken to the recovery room in stable condition.
--- NOTE | 2016-10-31 22:27 | NUR ---
Back from PACU Pt back from PACU at 2150 after Diagnostic Laparoscopy. pt awake, A&O x3. on 2L O2 via NC. SPO2 on arrival is 94%. VS are WNL. Pt denies pain/nausea or abdominal discomfort at this time. Bowel tone hypoactive at this time. 3 Lap sites with steri-strips and bandage. C/D/I. IV NS running at 100ml/hr. will continue to monitor and provide care.
[2016-11-01] VITALS (11 sets, daily range): BP systolic 100–138; BP diastolic 61–78; PULSE 61–72; RESP 12–17; O2SAT 93–97
--- NOTE | 2016-11-01 05:30 | NUR ---
Activity pt denies pain/nausea since post op. 3 Lap sites with steri-strips and bandage are C/D/I. pt had ICE chips during this night. pt ambulated in the hallway x1 with SBA; tolerated well. pt spent most the night asleep. will continue to monitor.
[2016-11-01 07:36] LABS: BASOPHILS % (AUTO) 0.1 % (0-3); EOSINOPHILS % (AUTO) 0 % (0-5); MONOCYTES % (AUTO) 2.7 % (4-12); Mean Corpuscular Hemoglobin 27.8 pg (27.0-35.0); Mean Corpuscular Volume 85.8 fL (81-100); NEUTROPHILS % (AUTO) 89.6 % (40-74); Platelet Count 267 bil/L (150-400)
[2016-11-01 07:45] LABS: INR 1.18 ratio
--- NOTE | 2016-11-01 10:29 | PCM.PNSURG ---
Subjective Date of Service: Nov 01, 2016 Visit Information: Abdominal pain s/p Diagnostic Laparoscopy 10/31/2016 Post-Op Day # 1 Date of Admission: Oct 30, 2016 at 11:34 Hospital Day # 3 Subjective: Feeling good, hungry Objective Vital Sign- Last 8 Hours Date Time Temp Pulse Resp B/P Pulse Ox O2 Delivery O2 Flow Rate FiO2 11/01/16 08:40 Supplement Oxygen 11/01/16 08:40 36.7 66 16 108/62 94 Room Air 2.00 11/01/16 05:42 36.7 67 16 101/62 94 Room Air Intake and Output- Last 8 Hour 11/01/16 Cumulative From/Thru 07:00 10/30/16 03:49 - 11/01/16 06:38 Intake Total 1151 ml 5331 ml Output Total 700 ml 2675 ml Balance 451 ml 2656 ml Intake Oral 200 ml 200 ml IV Total 951 ml 5131 ml Output Urine Total 700 ml 2675 ml Estimated Blood Loss 0 ml # Bowel Movements 0 0 Abdomen: Soft, Other (dressings dry) Result Diagram: 11/01/16 0714 11/01/16 0714 Assessment & Plan Impression Abdominal pain of unclear etiology, doing better Problems: Plan Advance diet and rx per GI Please call if any questions Federico Serrano MD Nov 01, 2016 10:29
[2016-11-01] MEDS: metroNIDAZOLE Inj 500 MG in IV Premix 1 EACH IV SCH ×2 (11:41→20:32)
[2016-11-01] MEDS ORDERED: fentaNYL-PF 50 mCg/mL 2 mL Inj IVPUSH PRN (12:10)
[2016-11-01] MEDS: Famotidine Inj 20 MG in IV Premix 1 EACH IV SCH (12:14)
[2016-11-01] MEDS: Ketorolac 15 mg/mL Inj IVPUSH PRN (13:00)
[2016-11-01] MEDS: 0.9% Sodium Chloride 1,000 ML IV SCH ×3 (14:21→18:40)
--- NOTE | 2016-11-01 15:03 | ENDO ---
[address] [address] ENDOSCOPY PROCEDURE PATIENT: CARMENCITA ENCARNACION : 1955 MR#: [id number] ADMIT: 10/30/2016 JOB ID: [id number] PROCEDURE: Esophagogastroduodenoscopy with biopsy. INDICATIONS: A 61-year-old female with unexplained right upper quadrant and epigastric abdominal pain associated with fever, chills, but normal liver chemistries, normal lipase, and a rather unremarkable diagnostic laparoscopy last night. Interestingly, she feels much improved today on antimicrobial therapy. Diagnostic EGD is pursued. EQUIPMENT: [id number]. SEDATION: 4 mg Versed and 100 mcg fentanyl. COMPLICATIONS: None identified. PROCEDURE INFORMATION: After the risks and benefits were explained, written and verbal informed consent was obtained, the patient was brought into the endoscopy suite and placed into the left lateral decubitus position. Sedation was achieved as above. The scope was introduced into the mouth through the bite block, and advanced to the second portion of the duodenum. The scope was slowly withdrawn to carefully examine the mucosa for any defects or lesions. Retroflexed views were accomplished in the stomach. The stomach was decompressed. Scope removed from the patient who tolerated the procedure well. FINDINGS: 1. Duodenum. No obvious mucosal pathology appreciated from the bulb through to the second portion. 2. Stomach: No outlet obstruction. No ulceration. There was a mild diffuse gastropathy with some friability more proximally. A diminutive gastric polyp was taken from the body and submitted for histopathology and for exclusion of Helicobacter infection. Retroflexed views of the LES otherwise were rather unremarkable. 3. Esophagus: The squamocolumnar junction correlated with the top of the gastric folds. The GEJ was at 38 cm from the incisors. The patient had evidence of ulceration right at the level of the GE junction. This was perhaps about 4 or 5 mm, bland based, with no heaped up edges. There were also some scattered diffuse erosive features in the esophageal body. A subtle sliding hiatal hernia was noted. ENDOSCOPIC DIAGNOSES: 1. Ulcerative and erosive esophagitis. 2. Subtle sliding hiatal hernia. 3. Gastropathy. 4. Diminutive gastric polyp. RECOMMENDATIONS: 1. Await histopathology. 2. If Helicobacter is found, it will need to be eradicated with standard triple therapy. 3. A proton pump inhibitor once daily is started. 4. The etiology of the patient's symptoms remains a little unclear. No question, she is markedly clinically improved today, and I would be inclined to see how she does with dietary advancement on PPI and perhaps continue the antibiotics for at least another few days. If she continues to do well through tomorrow, I do not see why she could be discharged home. 5. Famotidine will be discontinued in favor of once-daily oral PPI.
--- NOTE | 2016-11-01 15:23 | NUR ---
Social Work: Brief Note / Multidisciplinary Rounds Data: Pt is a 61 y/o female admitted for RUQ pain, kidney stone. Pt's PCP is not listed, pt's insurance is [employer]. EMR reviewed. Pt readmit score is 1, low. Pt discussed in rounds. MD states pt likely to d/c tomorrow. Pt currently on IVABX but MD plans to switch to POABX at d/c. Likely no d/c planning needs at this time. TRIAL JUDGE will continue to follow if needs arise. Assessment: Pt who is independent at baseline. Plan: Pt will d/c home when medically stable, likely tomorrow per MD. Likely no d/c planning needs at this time. TRIAL JUDGE will continue to follow if needs arise. YELENA Mullen
--- NOTE | 2016-11-01 15:38 | NUR ---
EDG Patient returned from Endoscopy at 1530 where she had a EDG today. team found ulcerative esophagus, hiatus hernia, and did biopsy on one duodenal polyp. Patient denies nausea, pain , and shortness of breath. VSS, dinner ordered, and patient resting quietly in bed. Previous lap sites x3 c/d/i, patient state she is passing gas, ambulating in malave over 100ft x2, antibiotic therapy ongoing.
--- NOTE | 2016-11-01 18:27 | PCM.PNMED ---
Subjective Date of Service Nov 01, 2016 Subjective Patient says pain is improved. Does not currently have any nausea. pain at the sites of laparoscopic incision Exam Vital Signs Vital Sign - Last Date Time Temp Pulse Resp B/P Pulse Ox O2 Delivery O2 Flow Rate FiO2 11/01/16 17:36 Supplement Oxygen 11/01/16 17:36 36.6 64 16 116/65 96 2.00 Intake and Output 10/31/16 10/31/16 11/01/16 Cumulative From/Thru 15:00 23:00 07:00 10/30/16 03:49 - 11/01/16 06:38 Intake Total 1138 ml 1751 ml 1151 ml 5331 ml Output Total 1375 ml 400 ml 700 ml 2675 ml Balance -237 ml 1351 ml 451 ml 2656 ml Intake Oral 200 ml 200 ml IV Total 1138 ml 1751 ml 951 ml 5131 ml Output Urine Total 1375 ml 400 ml 700 ml 2675 ml Estimated Blood Loss 0 ml 0 ml # Bowel Movements 0 0 0 Exam Gen: Obese NAD, AOx3. HEENT: NCAT, PERRLA, EOMI, MMM, sclera anicteric. Neck: Soft, supple, symmetrical, no thyromegaly/JVD/LAD. Resp: CTAB, no R/R/W. CV: RRR, nl S1/S2, no M/R/G, Abd: Soft, (+) BS, mild tenderness to palpation over epigastric and right upper quadrant- improved. No Rebound tenderness or guarding. Ext: +PP, -edema Skin: warm/dry/intact Neuro/Psych: No focal deficits, CN II-XII grossly intact. AAOx3, cooperative , appropriate mood/affect. IVs and Medications Medications Reviewed: Medications were reviewed in detail Lab and Diagnostics Result Diagram: 11/01/1671311/01/1614 X-Rays, CTs and MRIs CT ABDOMEN AND PELVIS WITH CONTRAST- Date of Service: 10/30/16 0658 -Multiple small right periureteral calcifications in keeping with phleboliths, one of which may be intraluminal however technically indeterminate, and no periureteral stranding. However there is mild right pelviectasis. Recommend clinical correlation and if further confirmation is necessary, CT IVP could be performed. -Mild prominence of the gallbladder however no wall thickening or pericholecystic inflammatory changes. Please correlate clinically and with LFTs. If needed further assessment with ultrasound can be performed -No cholelithiasis. US ABDOMEN, LIMITED Date of Service: 10/30/16 0610 INDICATIONS: RUQ COMPARISON: [facility], US, US VENOUS LEG DPLX UNI LT, 07/31/2016, 7 :11. FINDINGS: Liver: Mild homogeneously increased echogenicity throughout the liver. No masses. Gallbladder: The gallbladder is distended. The gallbladder wall measures 3 mm at the upper limits of normal. Negative sonographic Charles's sign. No pericholecystic fluid. Prominence of the extrahepatic bile ducts. Right kidney: No hydronephrosis. The right kidney measures 10.6 CM. No solid masses. IMPRESSION: 1. Findings are indeterminate for acute cholecystitis. If clinical exam is unclear recommend a HIDA scan. 2. Fatty infiltration of the liver. 3. Prominent extrahepatic bile ducts. Assessment & Plan 61-year-old pleasant female with the history of hyperlipidemia, obesity, family history of gallstones presenting with 1 day of right upper quadrant abdominal pain that started yesterday evening at dinner with ultrasound finding of common bile duct dilation with mild prominence of the gallbladder however indeterminate for acute cholecystitis. #RUQ Pain-present on admission, active. was thought cholangitis or cholecystitis. EGD Finding of gastritis. -Dilated Common Bile Ducts- CT showed some mild prominence of the gallbladder without wall thickening or pericholecystic inflammatory changes. No cholelithiasis was evident. Abdominal ultrasound was done which showed findings indeterminate for acute cholecystitis. Did show prominent extrahepatic bile ducts. - GI, Dr. Devon Pollack consulted- initially, rec MRCP - MRCP-showed dilated common bile duct up to 10 mm. Question of cholangitis. May be small stones or sludge within the common bile duct. - Given patient's LFTs are normal, obatained HIDA scan. - Surgery consulted for possible cholecystectomy-appreciate recommendations. -720-diagnostic laparoscopy did not show any evidence of cholecystitis or biliary stones. - EGD performed on 721 by GI did show gastritis. #Sepsis, present on admission, active- SIRS+ WBC >15.4->17.8 and Fever >38. Source is likely gallbladder. Hemodynamically stable. Urinalysis is negative for infection. - Patient is allergic to penicillin and sulfa drugs, therefore started on levofloxacin and Flagyl day 2.. - Repeat CBC in a.m. #Nephrolithiasis - present on admission, active-CT of the abdomen and pelvis with contrast- small right periureteral calcification. Less likely to be causing the right upper quadrant pain given her nonobstructing without any hydronephrosis. Patient has no history of renal stones. Chronic issues- #Obesity- likely contributing to possible cholelithiasis. #Hyperlipidemia-patient cannot tolerate statins secondary to rhabdomyolysis. Check lipid panel in a.m. Dispo-patient upgraded to inpatient admission after diagnosis of sepsis on the evening of admission. Likely stay greater than 2 nights GI Prophylaxis: H2 michelle VTE Mechanical Devices: Intermittant Pneumatic CD Jose Lerner MD Nov 01, 2016 18:27
[2016-11-01] MEDS: levoFLOXacin Inj 750 MG in IV Premix 1 EACH IV SCH (18:41)
[2016-11-02] MEDS: Ondansetron 2 mg/mL 2 mL Inj IVPUSH PRN (01:36)
--- NOTE | 2016-11-02 03:48 | NUR ---
Heartburn Pt. c/o heartburn, given prn maalox with a good effect, pt. have seen ambulating to the hallway several times, reported of passing gas but no BM reported this shift, 3 lap site CDI no s/s of infections noted, VSS afebrile, call light in reach at all times.
[2016-11-02] MEDS: 0.9% Sodium Chloride 1,000 ML IV SCH ×2 (04:29→11:50)
[2016-11-02 06:17] VITALS: BP 120/82; PULSE 61; RESP 17; O2SAT 96
[2016-11-02 07:12] LABS: BASOPHILS % (AUTO) 0.2 % (0-3); EOSINOPHILS % (AUTO) 0.3 % (0-5); MONOCYTES % (AUTO) 6.6 % (4-12); Mean Corpuscular Hemoglobin 28.4 pg (27.0-35.0); Mean Corpuscular Volume 86.5 fL (81-100); NEUTROPHILS % (AUTO) 73.8 % (40-74); Platelet Count 289 bil/L (150-400)
[2016-11-02] MEDS ORDERED: Pantoprazole 40 mg ER24 Tablet PO SCH (07:30)
[2016-11-02] MEDS: metroNIDAZOLE Inj 500 MG in IV Premix 1 EACH IV SCH (07:37)
--- NOTE | 2016-11-02 12:30 | PROG NOTE ---
[address] [address] PROGRESS NOTE PATIENT: CARMENCITA ENCARNACION : 1955 MR#: [id number] ADMIT: 10/30/2016 JOB ID: [id number] DATE: 11/02/2016 SUBJECTIVE: The patient has done well. She feels like she has a moderate amount of diffuse gas and is passing flatus. No bowel movement as yet. No focal symptoms of right upper quadrant or epigastric pain. No further fevers. Overall she feels quite a bit improved and is hopeful that she can be discharged home. OBJECTIVE: Vital signs are stable. Patient in no distress. Alert, oriented, appropriate, cooperative, conversational. LABORATORY: LFTs remain normal. White count is coming down at 13.2. Hemoglobin 11.8. Platelets are normal. Differential is normal. ASSESSMENT AND RECOMMENDATIONS: A 61-year-old female with right upper quadrant and epigastric pain associated with fever and chill of uncertain etiology. She has a sluggish gallbladder in terms of suboptimal or diminished ejection fraction; but, based on the HIDA scan, did not qualify as acute cholecystitis. She has not developed any abnormal liver chemistries as would be the case in cholangitis. She has responded quite nicely to antibiotic and EGD was relatively unremarkable apart from the presence of ulcerative esophagitis and a subtle sliding hiatal hernia. Histopathology is pending. I think she should continue on once daily PPI as an outpatient. I would recommend a few more days of oral antibiotic. I would like to see the patient in a few weeks' time to see how she is getting on. At that time we can consider a repeat EGD to ensure complete mucosal healing. COMMENT: This is a no-charge physician visit. Today is the Sabbath. Please do not submit a physician charge for this particular note.
--- NOTE | 2016-11-02 14:42 | PCM.PNMED ---
Subjective Date of Service Nov 02, 2016 Subjective Patient reports resolved abdominal pain. Denies nausea. Exam Vital Signs Vital Sign - Last Date Time Temp Pulse Resp B/P Pulse Ox O2 Delivery O2 Flow Rate FiO2 11/02/16 06:17 37.0 61 17 120/82 96 Room Air 11/01/16 17:36 2.00 Intake and Output 11/01/16 11/01/16 11/02/16 Cumulative From/Thru 15:00 23:00 07:00 10/30/16 03:49 - 11/02/16 06:17 Intake Total 200 ml 1916 ml 7447 ml Output Total 1200 ml 3875 ml Balance 200 ml 716 ml 3572 ml Intake Oral 590 ml 790 ml IV Total 200 ml 1326 ml 6657 ml Output Urine Total 1200 ml 3875 ml Estimated Blood Loss 0 ml # Bowel Movements 0 0 Exam Gen: Obese NAD, AOx3. HEENT: NCAT, PERRLA, EOMI, MMM, sclera anicteric. Neck: Soft, supple, symmetrical, no thyromegaly/JVD/LAD. Resp: CTAB, no R/R/W. CV: RRR, nl S1/S2, no M/R/G, Abd: Soft, (+) BS, no TTP. No Rebound tenderness or guarding. Ext: +PP, -edema Skin: warm/dry/intact Neuro/Psych: No focal deficits, CN II-XII grossly intact. AAOx3, cooperative , appropriate mood/affect IVs and Medications Medications Reviewed: Medications were reviewed in detail Lab and Diagnostics Result Diagram: 11/02/[id number]/1647 X-Rays, CTs and MRIs CT ABDOMEN AND PELVIS WITH CONTRAST- Date of Service: 10/30/16 0658 -Multiple small right periureteral calcifications in keeping with phleboliths, one of which may be intraluminal however technically indeterminate, and no periureteral stranding. However there is mild right pelviectasis. Recommend clinical correlation and if further confirmation is necessary, CT IVP could be performed. -Mild prominence of the gallbladder however no wall thickening or pericholecystic inflammatory changes. Please correlate clinically and with LFTs. If needed further assessment with ultrasound can be performed -No cholelithiasis. US ABDOMEN, LIMITED Date of Service: 10/30/16 0610 INDICATIONS: RUQ COMPARISON: [facility], US, US VENOUS LEG DPLX UNI LT, 07/31/2016, 7 :11. FINDINGS: Liver: Mild homogeneously increased echogenicity throughout the liver. No masses. Gallbladder: The gallbladder is distended. The gallbladder wall measures 3 mm at the upper limits of normal. Negative sonographic Charles's sign. No pericholecystic fluid. Prominence of the extrahepatic bile ducts. Right kidney: No hydronephrosis. The right kidney measures 10.6 CM. No solid masses. IMPRESSION: 1. Findings are indeterminate for acute cholecystitis. If clinical exam is unclear recommend a HIDA scan. 2. Fatty infiltration of the liver. 3. Prominent extrahepatic bile ducts. Assessment & Plan 61-year-old pleasant female with the history of hyperlipidemia, obesity, family history of gallstones presenting with 1 day of right upper quadrant abdominal pain that started yesterday evening at dinner with ultrasound finding of common bile duct dilation with mild prominence of the gallbladder however indeterminate for acute cholecystitis s/p EGD finding of gastritis. #RUQ Pain-present on admission, active. unclear etiology. Workup was not definitive for cholecysitis. Was thought cholangitis however LFT's have been normal. HIDA was not definitive for Acute cholecystitis. EGD Finding of gastritis and hiatal hernia. . -Dilated Common Bile Ducts- CT showed some mild prominence of the gallbladder without wall thickening or pericholecystic inflammatory changes. No cholelithiasis was evident. - GI, Dr. eDvon Pollack was construction consultant. Performed EGD. - MRCP-showed dilated common bile duct up to 10 mm. Question of cholangitis. May be small stones or sludge within the common bile duct. - Given patient's LFTs are normal, obatained HIDA scan. - Surgery, Dr Serrano, performed diagnostic laparoscopy did not find evidence of cholecystitis or biliary stones. GI. discharge recs below- Histopathology is pending. I think she should continue on once daily PPI as an outpatient. I would recommend a few more days of oral antibiotic. I would like to see the patient in a few weeks' time to see how she is getting on . #Sepsis, present on admission, active- SIRS+ WBC >15.4->17.8 and Fever >38. Hemodynamically stable. Urinalysis is negative for infection. Source unclear but treatin as probable gallbladder source. May also be H Pylori, path from EGD pending. . - Patient is allergic to penicillin and sulfa drugs, therefore started on levofloxacin and Flagyl, will continue on discharge for 5 days. #Nephrolithiasis - present on admission, active-CT of the abdomen and pelvis with contrast- small right periureteral calcification. Less likely to be causing the right upper quadrant pain given her nonobstructing without any hydronephrosis. Patient has no history of renal stones. No hematuria on UA. Chronic issues- #Obesity- likely contributing to possible cholelithiasis. #Hyperlipidemia-patient cannot tolerate statins secondary to rhabdomyolysis. Check lipid panel in a.m. Dispo-patient upgraded to inpatient admission after diagnosis of sepsis on the evening of admission. Likely stay greater than 2 nights GI Prophylaxis: H2 michelle VTE Mechanical Devices: Intermittant Pneumatic CD Resuscitation Status: CPR: Attempt Resuscitation Jose Lerner MD Nov 02, 2016 14:42 GI Prophylaxis: H2 michelle VTE Mechanical Devices: Intermittant Pneumatic CD Jose Lerner MD Nov 02, 2016 14:42
--- NOTE | 2016-11-02 14:44 | PCM.DIMED ---
Discharge Instructions Date of Service Nov 02, 2016 Dates of Hospitalization Oct 30, 2016 at 11:34 Discharge Diagnosis Discharge Diagnosis #RUQ Pain- #Sepsis- #Nephrolithiasis - #Obesity- #Hyperlipidemia- Medication Instructions Additional med instructions Take protonix daily. Continue antibiotics for another 5 days. Diet Discharge Diet: No restrictions Activity Discharge Activity: No restrictions Patient Instructions Provider: Devon Pollack MD Follow-up in: 3 weeks Jose Lerner MD Nov 02, 2016 14:44
[2016-11-02] MEDS ORDERED: PANT40TA3 PO (14:47)
[2016-11-02] MEDS ORDERED: METR500T PO (14:47)
[2016-11-02] MEDS ORDERED: LEVO750T39 PO (14:47)
--- NOTE | 2016-11-02 15:26 | NUR ---
Social Work: Discharge / Multidisciplinary Rounds Data: Pt is on day 3 of hospitalization. EMR reviewed, pt discussed in rounds. states pt ready for d/c today. D/C orders are in. states POABX at d/c. No d/c planning needs at this time. TELEHEALTH CASE MANAGER will continue to follow if needs arise. Assessment: Pt who is independent at baseline, capable of self care at this time. Plan: Pt will d/c home via POV today. No d/c planning needs at this time. TELEHEALTH CASE MANAGER will continue to follow if needs arise. YELENA Mullen
[2016-11-02 16:00] VITALS: BP 140/85; PULSE 78; RESP 16; O2SAT 95
--- NOTE | 2016-11-02 16:19 | PCM.DC.MED ---
Discharge Summary Date of Service Nov 02, 2016 Dates of Hospitalization Date of Hospital Admission Oct 30, 2016 at 11:34 Date of Discharge: Nov 02, 2016 Providers: Admitting Physician: Ko Rust MD Primary Care Physician: Other,Physician Attending Physician: Ko Rust MD Diagnosis at Time of Discharge Diagnosis at Time of Discharge #RUQ Pain- #Sepsis- #Nephrolithiasis - #Obesity- #Hyperlipidemia- Procedures XRay, CTs & MRIs CT ABDOMEN AND PELVIS WITH CONTRAST- Date of Service: 10/30/16 0658 -Multiple small right periureteral calcifications in keeping with phleboliths, one of which may be intraluminal however technically indeterminate, and no periureteral stranding. However there is mild right pelviectasis. Recommend clinical correlation and if further confirmation is necessary, CT IVP could be performed. -Mild prominence of the gallbladder however no wall thickening or pericholecystic inflammatory changes. Please correlate clinically and with LFTs. If needed further assessment with ultrasound can be performed -No cholelithiasis. US ABDOMEN, LIMITED Date of Service: 10/30/16 0610 INDICATIONS: RUQ COMPARISON: [facility], US, US VENOUS LEG DPLX UNI LT, 07/31/2016, 7 :11. FINDINGS: Liver: Mild homogeneously increased echogenicity throughout the liver. No masses. Gallbladder: The gallbladder is distended. The gallbladder wall measures 3 mm at the upper limits of normal. Negative sonographic Charles's sign. No pericholecystic fluid. Prominence of the extrahepatic bile ducts. Right kidney: No hydronephrosis. The right kidney measures 10.6 CM. No solid masses. IMPRESSION: 1. Findings are indeterminate for acute cholecystitis. If clinical exam is unclear recommend a HIDA scan. 2. Fatty infiltration of the liver. 3. Prominent extrahepatic bile ducts. Brief History 61-year-old pleasant female with the history of hyperlipidemia, obesity, family history of gallstones presenting with 1 day of right upper quadrant abdominal pain that started yesterday evening at dinner. Patient says the pain was an 8 or 9 out of 10. Initially epigastric did not seem to move more to the right upper quadrant. She has never had any episode like this before. Denies any trauma. Patient denies any history of gallstones she knows of. She said that her dinner did consists consist of high fat and oil content. She does not history of elevated cholesterol and was tried on pravastatin last year by her primary care physician however could not tolerate secondary to rhabdomyolysis. Denies light-colored stools. Denies any jaundice of skin or scleral icterus. Denies any nausea or vomiting. Denies any diarrhea. Denies any fever or chills. She was recently put on antibiotic tetracycline for a stye around her left eye lid. She completed 9 of 10 days with today being the day. Hospital Course 61-year-old pleasant female with the history of hyperlipidemia, obesity, family history of gallstones presenting with 1 day of right upper quadrant abdominal pain that started yesterday evening at dinner with ultrasound finding of common bile duct dilation with mild prominence of the gallbladder however indeterminate for acute cholecystitis s/p EGD finding of gastritis. #RUQ Pain-present on admission, active. unclear etiology. Workup was not definitive for cholecysitis. Was thought cholangitis however LFT's have been normal. HIDA was not definitive for Acute cholecystitis. EGD Finding of gastritis and hiatal hernia. . -Dilated Common Bile Ducts- CT showed some mild prominence of the gallbladder without wall thickening or pericholecystic inflammatory changes. No cholelithiasis was evident. - GI, Dr. Devon Pollack was law firm consultant. Performed EGD. - MRCP-showed dilated common bile duct up to 10 mm. Question of cholangitis. May be small stones or sludge within the common bile duct. - Given patient's LFTs are normal, obatained HIDA scan. - Surgery, Dr Serrano, performed diagnostic laparoscopy did not find evidence of cholecystitis or biliary stones. GI. discharge recs below- Histopathology is pending. I think she should continue on once daily PPI as an outpatient. I would recommend a few more days of oral antibiotic. I would like to see the patient in a few weeks' time to see how she is getting on . #Sepsis, present on admission, active- SIRS+ WBC >15.4->17.8 and Fever >38. Hemodynamically stable. Urinalysis is negative for infection. Source unclear but treatin as probable gallbladder source. May also be H Pylori, path from EGD pending. . - Patient is allergic to penicillin and sulfa drugs, therefore started on levofloxacin and Flagyl, will continue on discharge for 5 days. #Nephrolithiasis - present on admission, active-CT of the abdomen and pelvis with contrast- small right periureteral calcification. Less likely to be causing the right upper quadrant pain given her nonobstructing without any hydronephrosis. Patient has no history of renal stones. No hematuria on UA. Chronic issues- #Obesity- likely contributing to possible cholelithiasis. #Hyperlipidemia-patient cannot tolerate statins secondary to rhabdomyolysis. Check lipid panel in a.m. Dispo-patient upgraded to inpatient admission after diagnosis of sepsis on the evening of admission. Likely stay greater than 2 nights Exam Vital Signs (Last) Date Time Temp Pulse Resp B/P Pulse Ox O2 Delivery O2 Flow Rate FiO2 11/02/16 06:17 37.0 61 17 120/82 96 Room Air 11/01/16 17:36 2.00 Test 10/30/16 04:20 10/30/16 05:05 10/30/16 14:35 10/30/16 20:50 Urine Color Yellow (YELLOW) Urine Appearance Clear (CLEAR,HAZY) Urine pH 7.5 (5.0-8.0) Urine Specific [place] 1.020 (1.003-1.035) Urine Protein Tracemg/dL (NEG,TRACE) Urine Glucose (UA) Negativemg/dL (NEGATIVE) Urine Ketones Negativemg/dL (NEGATIVE) Urine Occult Blood Trace (NEGATIVE) Urine Nitrite Negative (NEGATIVE) Urine Bilirubin Negative (NEGATIVE) Urine Urobilinogen Normalmg/dL (NORMAL) Urine Leukocyte Esterase Negative (NEGATIVE) Urine RBC 0-2/hpf (0-2) Urine WBC 0-5/hpf (0-5) Urine Epithelial Cells Occasional/hpf (NONE-MOD) Urine Crystals None seen (NONE SEEN) Urine Bacteria Few/hpf (NONE-FEW) Urine Hyaline Casts None/lpf (NONE) Urine Granular Casts None seen (NONE SEEN) Urine Waxy Casts None seen (NONE SEEN) Urine Red Blood Cell Casts None seen (NONE SEEN) Urine White Blood Cell Casts None seen (NONE SEEN) Urine Mucus None seen (None Seen) Urine Trichomonas None seen (NONE SEEN) Urine Yeast None (NONE SEEN) Urinalysis Comment Amorphous sediment Urine Culture Reflexed Not indicated Magnesium Level 1.8mg/dL (1.6-2.6) Troponin T < 0.010ug/L (0.0-0.011) Lactic Acid Level 0.9mmol/L (0.4-2.0) Direct Bilirubin 0.2mg/dL (0.0-0.3) Test 10/31/16 06:30 11/01/16 07:14 11/02/16 06:47 Triglycerides Level 52mg/dL (0-149) Cholesterol Level 179mg/dL (100-199) LDL Cholesterol, Calculated 117.600mg/dL (0-99) VLDL Cholesterol 10.400mg/dL HDL Cholesterol 51mg/dL (>39) Cholesterol/HDL Ratio 3.51 (0.0-4.4) Lipase 51U/L (13-60) Prothrombin Time 12.7sec (8.1-12.5) Prothromb Time International Ratio 1.18ratio White Blood Count 13.2th/mm3 (3.8-10.1) Red Blood Count 4.16mil/mm3 (3.90-5.20) Hemoglobin 11.8g/dL (12.0-15.6) Hematocrit 36.0% (35.0-46.0) Mean Corpuscular Volume 86.5fL (81-100) Mean Corpuscular Hemoglobin 28.4pg (27.0-35.0) Mean Corpuscular Hemoglobin Concent 32.8% (32.0-37.0) Red Cell Distribution Width 13.1% (12.3-15.4) Platelet Count 289bil/L (150-400) Neutrophils (%) (Auto) 73.8% (40-74) Lymphocytes (%) (Auto) 18.6% (14-46) Monocytes (%) (Auto) 6.6% (4-12) Eosinophils (%) (Auto) 0.3% (0-5) Basophils (%) (Auto) 0.2% (0-3) Sodium Level 141mEq/L (134-144) Potassium Level 3.8mEq/L (3.5-5.2) Chloride Level 105mEq/L (97-108) Carbon Dioxide Level 22mmol/L (18-29) Blood Urea Nitrogen 17mg/dL (8-27) Creatinine 0.64mg/dL (0.57-1.00) Estimat Glomerular Filtration Rate 136mL/min (>59) Glucose Level 133mg/dL (60-99) Calcium Level 8.5mg/dL (8.5-10.1) Total Bilirubin 0.4mg/dL (0.0-1.2) Aspartate Amino Transf (AST/SGOT) 25U/L (0-50) Alanine Aminotransferase (ALT/SGPT) 27U/L (0-32) Alkaline Phosphatase 82U/L (25-165) Total Protein 5.8g/dL (6.4-8.4) Albumin 3.2g/dL (3.4-5.0) Discharge Medications Discharge Medications Levofloxacin (Levofloxacin) 750 Mg Tablet 750 MG PO DAILY Prescribed by: KO RUST MD Metronidazole (Flagyl) 500 Mg Tablet 500 MG PO Q8H Prescribed by: KO RUST MD Pantoprazole DR (Pantoprazole DR) 40 Mg Tablet.dr 40 MG PO DAILYAC Prescribed by: KO RUST MD Additional med instructions Take protonix daily. Continue antibiotics for another 5 days. Followup Plan Disposition: Home Discharge Diet: No restrictions Discharge Activity: No restrictions Provider: Devon Pollack MD Follow-up in: 3 weeks Ko Rust MD Nov 02, 2016 16:19
--- NOTE | 2016-11-02 16:57 | NUR ---
Discharge Patient left floor at [address] self home. All discharge information discussed with patient including follow up appointment and medications. IV d/c'd intact. All belongings left with patient.
--- NOTE | 2016-11-04 12:09 | PATH ---
SURGICAL PATHOLOGY Attending Physician:Nikko Dc CASE STATUS: Signed Out PATIENT NAME: CARMENCITA ENCARNACION PID: [id number] : 1955 DATE COLLECTED:11/01/2016 00:00 SPECIMEN: Stomach, Polyp, Biopsy CLINICAL HISTORY: 1). GASTRIC POLYP FINAL DIAGNOSIS: 1.GASTRIC POLYP: FUNDIC GLAND POLYP, NEGATIVE FOR ATYPIA. Negative for evidence of Helicobacter on H&E stain. Negative for intestinal metaplasia. Negative for dysplasia and malignancy. ICD10 K31.7 GROSS DESCRIPTION: Received in formalin, labeled with the patient' s name and "gastric polyp", is one fragment of cooley, soft tissue measuring 0.2 x 0.1 x 0.1 cm. The fragment is totally submitted in one cassette. ([id number]) MICRO DESCRIPTION: See diagnosis. ICD-9 CODES: CPT CODES: 1: 50460 Electronically Signed Out Devon Ellis MD [facility] Pathology [facility] [address], [place] [address] Technical component performed at [facility], [facility] [address], [place], [address]
== END 2016-11-02 16:44 | disposition home or self-care (01) | DRG 358 ==
LOC: SED 03:47 → OBSVTOIN 11:34 → MOC 11:34
PROVIDERS: ADMIT Internal Medicine; ATTEND Internal Medicine
PROC: 0WJP4ZZ Inspection of Gastrointestinal Tract, Percutaneous Endoscopic Approach (ICD-10-PCS; principal; 2016-10-31 19:30)
PROC: 0DB68ZX Excision of Stomach, Via Natural or Artificial Opening Endoscopic, Diagnostic (ICD-10-PCS; 2016-11-01 12:30)
DX: K22.10 Ulcer of esophagus without bleeding (principal); E78.5 Hyperlipidemia, unspecified; E66.9 Obesity, unspecified; K44.9 Diaphragmatic hernia without obstruction or gangrene; K31.7 Polyp of stomach and duodenum; N20.0 Calculus of kidney; Z68.36 Body mass index [BMI] 36.0-36.9, adult; Z88.0 Allergy status to penicillin

== ENCOUNTER → 2016-12-17 | Day surgery (SDC) | payer OTHER ==
[~2016-12-17] VITALS: Ht 160 cm; Wt 86.1 kg
[~2016-12-17] MED LIST: 0.9% Sodium Chloride 1,000 ML IV PRN; ALBU8.5H2 INHALATION; AMT25T PO; ESTR0.3T2 PO; PANT40TA3 PO; Sodium Chloride LOK Flush 10 mL Syringe IV PRN; fentaNYL-PF 50 mCg/mL 2 mL Inj IVPUSH PRN
[2016-12-17 10:36] VITALS: BP 111/65; PULSE 55; RESP 16; O2SAT 100
[2016-12-17 11:57] VITALS: BP 117/72; PULSE 59; RESP 16; O2SAT 96
[2016-12-17 12:06] VITALS: BP 107/69; PULSE 67; RESP 14; O2SAT 95
[2016-12-17 12:14] VITALS: BP 122/74; PULSE 60; RESP 14; O2SAT 97
--- NOTE | 2016-12-17 13:37 | ENDO ---
[address] [address] ENDOSCOPY PROCEDURE PATIENT: CARMENCITA ENCARNACION : 1955 MR#: [id number] ADMIT: 12/17/2016 JOB ID: [id number] DATE OF SERVICE: 12/17/2016 PRIMARY PROVIDER: James Sanches DO. PROCEDURE: Esophagogastroduodenoscopy. INDICATIONS: A 61-year-old female who was recently found to have ulcerative esophagitis at upper endoscopy while inpatient. She has not had any further biliary-type symptoms. She has been on Protonix once daily and reports for repeat examination today to ensure mucosal healing. EQUIPMENT: GIF-H180. SEDATION: 4 mg Versed, 100 mcg fentanyl. COMPLICATIONS: None identified. PROCEDURE INFORMATION: After the risks and benefits were explained, written and verbal informed consent was obtained, the patient was brought into the endoscopy suite and placed into the left lateral decubitus position. Sedation was achieved as above. The scope was introduced into the mouth through the bite block and advanced to the second portion the duodenum. The scope was slowly withdrawn to carefully examine the mucosa for any defects or lesions. Retroflexed views were accomplished in the stomach. The stomach was decompressed, the scope removed the patient who tolerated the procedure well. FINDINGS: 1. Duodenum: This appeared visually unremarkable from the bulb through to the second portion. 2. Stomach: No outlet obstruction. No ulcers. No mass lesions. Mild diffuse gastropathy was again seen. Retroflexed views of the LES disclosed a sliding hiatal hernia. No other significant pathology appreciated. I did not repeat biopsies in that historically in October there was no evidence of Helicobacter pylori and the polyp was a fundic gland polyp. 3. Esophagus: The squamocolumnar junction correlated with the top of the gastric folds. The GEJ was at about 38 cm from the incisors. There was evidence of complete mucosal healing. I did not appreciate any evidence of persistent ulceration. No esophagitis. GEJ was at 38 cm. The remainder of the esophagus was unremarkable. ENDOSCOPIC DIAGNOSES: 1. Healed esophagitis. 2. Sliding hiatal hernia. 3. Gastropathy. RECOMMENDATIONS: 1. Continue anti-reflux regimen. 2. For any further biliary symptoms, the patient has historically been encouraged to give us a call for updated lab and imaging diagnostics. CC: James Sanches DO.
== END | disposition home or self-care (01) ==
LOC: END 00:14
PROVIDERS: ATTEND Internal Medicine Gastroenterology
DX: Z09 Encounter for follow-up examination after completed treatment for conditions other than malignant neoplasm (principal); K44.9 Diaphragmatic hernia without obstruction or gangrene; K31.9 Disease of stomach and duodenum, unspecified; Z87.19 Personal history of other diseases of the digestive system
CPT/HCPCS: 43235; G0500; J2250; J3010; J7030